=== PATIENT | female | born 1970 | race Caucasian/White ===

== ENCOUNTER 2019-03-31 10:06 | Emergency (ER) | payer BC ==
[~2019-03-31] VITALS: Ht 170.2 cm; Wt 117.0 kg
[2019-03-31] MEDS ORDERED: LISINOPRIL1 GM (10:17)
[2019-03-31] MEDS ORDERED: METFORMIN HCL850 MG (10:17)
[2019-03-31] MEDS ORDERED: GLIPIZIDE ER2.5 MG (10:17)
== END 2019-03-31 12:30 | disposition home or self-care (01) ==
LOC: ED 10:06
DX: S16.1XXA Strain of muscle, fascia and tendon at neck level, initial encounter (principal); V44.9XXA Unspecified car occupant injured in collision with heavy transport vehicle or bus in traffic accident, initial encounter; E11.9 Type 2 diabetes mellitus without complications; I10 Essential (primary) hypertension; F17.200 Nicotine dependence, unspecified, uncomplicated; Z88.0 Allergy status to penicillin; Z79.899 Other long term (current) drug therapy; Z79.84 Long term (current) use of oral hypoglycemic drugs
CPT/HCPCS: 72125; 99284-25; A9270